=== PATIENT | male | born 1995 | race Caucasian/White ===

== ENCOUNTER 2019-03-30 15:58 | Emergency (ER) | payer MEDICAID ==
[2019-03-30] MEDS: FLUORESCEIN STRIP RIGHT EYE (18:43)
== END 2019-03-30 18:55 | disposition home or self-care (01) ==
LOC: FTE 15:58
DX: H10.9 Unspecified conjunctivitis (principal)
CPT/HCPCS: 99283; Z7502